=== PATIENT | female | born 1955 | race Caucasian/White ===

== ENCOUNTER 2018-03-30 00:33 | Outpatient (CLI) | payer BC, SELFPAY ==
--- NOTE | 2018-03-30 11:50 | DI.MAMMO_ITS ---
SYMPTOM/DIAGNOSIS: SCREENING, Z12.31, PREVENTATIVE CARE, Z00.00 MAMMOGRAM: Mammograms were interpreted according to the usual protocol including computer analysis with CAD system, tomosynthesis and C view imaging. Comparison with prior examinations. Breast density B. No masses or microcalcifications are seen. There is nothing to suggest malignancy. IMPRESSION: Negative mammogram. Routine screening is recommended. Category I. MQSA ASSESSMENT OF FINDINGS: Negative. Category 1. Patient will receive a letter notifying them of these results. BI-RADS category B. There are scattered areas of fibroglandular density.
== END 2018-03-30 00:53 ==
PROVIDERS: PCP Nurse Practitioner Family; Visit Provider Registered Nurse
DX: Z00.00 Encounter for general adult medical examination without abnormal findings (principal); Z12.31 Encounter for screening mammogram for malignant neoplasm of breast
CPT/HCPCS: 77063; 77067

== ENCOUNTER 2018-05-19 08:18 | Day surgery (SDC) | payer BC, SELFPAY ==
[2018-05-19 08:33] VITALS: BP 129/64; PULSE 72; RESP 20; TEMP 36.6; O2SAT 90
== END 2018-05-19 08:50 | disposition home or self-care (01) ==
LOC: SUR 08:19
PROVIDERS: PCP Registered Nurse; Visit Provider Surgery
DX: Z12.11 Encounter for screening for malignant neoplasm of colon (principal); Z53.09 Procedure and treatment not carried out because of other contraindication; J06.9 Acute upper respiratory infection, unspecified; Y66 Nonadministration of surgical and medical care
CPT/HCPCS: 45378

== ENCOUNTER 2018-09-12 08:16 | Day surgery (SDC) | payer OTHER, SELFPAY ==
--- NOTE | 2018-09-12 06:35 | W.COLOREPORT ---
Date of service: 09/12/18 Time of Service: 09:18 Colonoscopy Report Date of procedure: 09/12/18 Pre-op diagnosis general: Colon Cancer Screening Post-op diagnosis procedure note: other (multiple colorectal polyp / mild diverticulosis) Procedure: Colonoscopy with polypectomy by hot snare and cold forceps Surgeon: Anusha Turcios Anesthesia proc note operative: other (General/ Yoselyn Snell, PULL UP HAND/ ASA 3) Estimated blood loss (mL): 5 Pathology: other (descending Polyp, sigmoid polyps x8, rectal polyp) Complications: None Disposition: no change Indications: Mrs. Brandt is a pleasant 62 year old female who was seen in the office for a screening colonoscopy. Risks, benefits and complications have been reviewed. Complications include but are not limited to bleeding, pain, perforation, missed small lesion/polyp, sore throat, aspiration and adverse reaction to the medications. Questions were entertained and answered to their satisfaction and they wished to proceed. No guarantees were given or implied. Prep: Miralax/Dulcolax Procedure Start Time: :18 Procedure End Time: 10:06 Retraction Time: 23 Findings: Multiple sessile polyps noted and removed with hot snare or cold forceps. Procedure Description: After informed consent was obtained the patient was taken to the procedure room and placed in a left decubitous position. Monitors were applied and a time out was done. The patients name, date of , procedure, allergies to medications and metal in their body was reviewed. The patient was then sedated. Once sedated and comfortable a rectal exam was done. External exam was normal. Internal exam revealed a normal sphincter tone and no palpable masses. The scope was then introduced and retro-flexed. No internal hemorrhoids were identified. The scope was then advanced to the cecum with difficulty due to tortuousity. The TI and appendiceal orifice were identified. The prep was adequate. The scope was then slowly retracted over 23 minutes back into the rectum. Polyps were removed in the descending colon with cold forceps, sigmoid colon x 8 removed with hot snare and cold forceps, and one rectal polyp removed with cold forceps. The scope was removed and the patient was woken up and taken back to Same day surgery in stable condition. The patient tolerated the procedure well and there were no immediate complications. Follow up: The patient should follow up in 3-5 years unless they develop changes in bowel habits or other new gastrointestinal complaints.
--- NOTE | 2018-09-12 06:38 | COLE_ITS ---
Date of service: 09/12/18 Time of Service: 09:18 Colonoscopy Report Date of procedure: 09/12/18 Pre-op diagnosis general: Colon Cancer Screening Post-op diagnosis procedure note: other (multiple colorectal polyp / mild diverticulosis) Procedure: Colonoscopy with polypectomy by hot snare and cold forceps Surgeon: Anusha Turcios Anesthesia proc note operative: other (General/ Yoselyn Snell, CUSTOMER LOGISTICS MANAGER/ ASA 3) Estimated blood loss (mL): 5 Pathology: other (descending Polyp, sigmoid polyps x8, rectal polyp) Complications: None Disposition: no change Indications: Mrs. Brandt is a pleasant 62 year old female who was seen in the office for a screening colonoscopy. Risks, benefits and complications have been reviewed. Complications include but are not limited to bleeding, pain, perforation, missed small lesion/polyp, sore throat, aspiration and adverse reaction to the medications. Questions were entertained and answered to their satisfaction and they wished to proceed. No guarantees were given or implied. Prep: Miralax/Dulcolax Procedure Start Time: :18 Procedure End Time: 10:06 Retraction Time: 23 Findings: Multiple sessile polyps noted and removed with hot snare or cold forceps. Procedure Description: After informed consent was obtained the patient was taken to the procedure room and placed in a left decubitous position. Monitors were applied and a time out was done. The patients name, date of , procedure, allergies to medications and metal in their body was reviewed. The patient was then sedated. Once sedated and comfortable a rectal exam was done. External exam was normal. Internal exam revealed a normal sphincter tone and no palpable masses. The scope was then introduced and retro-flexed. No internal hemorrhoids were identified. The scope was then advanced to the cecum with difficulty due to to rtuousity. The TI and appendiceal orifice were identified. The prep was adequate. The scope was then slowly retracted over 23 minutes back into the rectum. Polyps were removed in the descending colon with cold forceps, sigmoid colon x 8 removed with hot snare and cold forceps, and one rectal polyp removed with cold forceps. The scope was removed and the patient was woken up and taken back to Same day surgery in stable condition. The patient tolerated the procedure well and there were no immediate complications. Follow up: The patient should follow up in 3-5 years unless they develop changes in bowel habits or other new gastrointestinal complaints.
--- NOTE | 2018-09-12 06:39 | W.PM.DSUDISC ---
Discharge Plan Disposition Patient Disposition: HOME Condition: Good Discharge Details Reason For Visit: Colon Cancer Screening Attending Provider: Anusha Turcios Primary Care Provider: INEZ SHIPMAN Home Meds and New Rx's Prescriptions: Continued Restasis 0.05 % dropperette 1 drp OP Q12H RF: 0 levothyroxine 100 mcg capsule 100 mcg PO DAILY RF: 0 Spiriva with HandiHaler 18 mcg capsule, w/inhalation device 1 cap IH DAILY RF: 0 albuterol sulfate [ProAir HFA] 90 mcg/actuation Hfa Aerosol Inhaler 2 puff INHALATION QID PRNRF: 0 Discontinued bisacodyl [Dulcolax (bisacodyl)] 5 mg tablet,delayed release (DR/EC) 5 mg PO ONCE Qty: 4 RF: 0 polyethylene glycol 3350 17 gram/dose powder 255 g PO ONCE Qty: 255 RF: 0 Discharge Instructions Instructions: Colonoscopy (DC), Diverticulosis (DC), Colorectal Polyps (DC) Additional Instructions: Findings: multiple polyps mild diverticulosis Follow up: 3-5 years Please call if you develop: fevers >101.5 Nausea or Vomiting Abdominal pain that is not transient DAY SURGERY UNIT POST COLONOSCOPY INSTRUCTIONS 1. Because there will be medication in your system for the next 24 hours, you may feel a little sleepy. Your coordination will be affected. Therefore: a. Do not drive or operate dangerous equipment for 24 hours. b. Do not drink alcohol beverages for 24 hours (not even beer). c. Plan to go home and rest for the day. 2. Generally there are no restrictions on your activity after a day or so has gone by, but you may feel a bit fatigued for a few days. 3 After you arrive home you may have a light meal and return to a normal diet as you can tolerate it without feeling sick to your stomach. 4. After surgery, you may feel pain or discomfort. This should be only transient, but if it persists please contact your doctor. 5. If there are any questions regarding the findings of your procedure, please feel free to contact your doctor. 6. If you are unable to contact your doctor with a problem, contact the hospital at [phone]. 7. Continue all your regular medications unless directed otherwise. I understand the above instructions and have no questions. Signature of Patient or Responsible Adult Escort Date/Time Name of Responsible Adult Escort Signature of Nurse Date/Time Activity:: Activity as Tolerated Diet:: high fiber diet Discharge Orders Discharge Orders: Discharge Order (Routine); Ordered 09/12/18 Ordered By: Anusha Turcios DS: Diagnosis Discharge Diagnosis (1) S/P colonoscopy: Status: Acute (2) Colorectal polyps: Status: Acute
[2018-09-12 08:42] VITALS: BP 129/72; PULSE 83; RESP 16; TEMP 36; O2SAT 95
[2018-09-12] MEDS: Lactated Ringers 1,000 ML 80 ML IV (09:06)
--- NOTE | 2018-09-12 09:20 | BOWEL_PTH ---
PATIENT: Yodit Brandt LOC: [facility] U#:[id number] AGE/SX: 62/F ROOM: RE09/12/[address]: Anusha Turcios MD : [id number] BED: DIS: 09/12/2018 SPEC #: [id number] RECD: 09/12/18 12:32 STATUS: LINDA RE #: [id number] ALAN: 09/12/18 09:[address]: Anusha Turcios DEPT: Surgical Specimen RECD BY: Britni Little ENTERED: 09/12/18 12:34 SP TYPE: Bowel OTHR DR: Patty Johnson Tissues: 1 - BIOPSY BOWEL 2 - BIOPSY BOWEL 3 - BIOPSY BOWEL Procedures: GROSS AND MICRO LEVEL 4 Comments: [id number]
[2018-09-12 10:46] VITALS: BP 142/86; PULSE 77; RESP 18; TEMP 36; O2SAT 93
== END 2018-09-12 11:13 | disposition home or self-care (01) ==
LOC: SUR 08:17
PROVIDERS: PCP Registered Nurse; Visit Provider Surgery
PROC: 0DJD8ZZ Inspection of Lower Intestinal Tract, Via Natural or Artificial Opening Endoscopic (ICD-10-PCS; CPT 45378; principal; 2018-09-12 09:00)
DX: Z12.11 Encounter for screening for malignant neoplasm of colon (principal); K63.5 Polyp of colon; J44.9 Chronic obstructive pulmonary disease, unspecified; F17.210 Nicotine dependence, cigarettes, uncomplicated
CPT/HCPCS: 45385; 45380; 88305

== ENCOUNTER 2018-11-30 11:26 | Outpatient (REF) | payer OTHER, SELFPAY | END 2018-11-30 11:46 | LOC: NCHCN 11:26 | PROVIDERS: PCP Registered Nurse; Visit Provider Registered Nurse | DX: E03.9 Hypothyroidism, unspecified (principal) | CPT/HCPCS: 84443 ==

== ENCOUNTER 2019-12-19 11:53 | Outpatient (CLI) | payer OTHER, SELFPAY ==
--- NOTE | 2019-12-19 | DI.MAMMO_ITS ---
EXAM: MAMMO SCREENING CLINICAL HISTORY: SCREENING,Z12.31 TECHNIQUE: Mammograms were interpreted according to the usual protocol including computer analysis w Brigade CAD system, tomosynthesis and C-view imaging. COMPARISON: FINDINGS: The breasts are of moderate density with fairly symmetrical distribution of fibroglandular tissue. N o dominant mass or clumped microcalcification is identified in either breast. Current examination is compared with previous examination of March 2018 and there has been no gross interval change uriah earance comparison the previous study. IMPRESSION: No specific evidence of malignancy at this time. Routine screening examinations are suggested at yea rly intervals in this age group according to the ACS ACR guidelines : BI-RADS Cat 1 - Negative Breast Density - Category B - Scattered areas of fibroglandular density
== END 2019-12-19 12:13 ==
PROVIDERS: PCP Registered Nurse; Visit Provider Registered Nurse
DX: Z12.31 Encounter for screening mammogram for malignant neoplasm of breast (principal)
CPT/HCPCS: 77063; 77067

== ENCOUNTER 2020-02-11 14:38 | Outpatient (REF) | payer OTHER, SELFPAY ==
[2020-02-11 22:37] LABS: TSH 0.61 uIU/mL (0.36-3.74)
== END 2020-02-11 14:58 ==
LOC: NCHCN 14:38
PROVIDERS: PCP Registered Nurse; Visit Provider Registered Nurse
DX: E03.9 Hypothyroidism, unspecified (principal)
CPT/HCPCS: 84443

== ENCOUNTER 2020-09-03 10:51 | Outpatient (REF) | payer OTHER, SELFPAY ==
[2020-09-03 14:30] LABS: Hemoglobin A1C 5.9 % (<5.7)
[2020-09-03 14:47] LABS: Calculated LDL 117 mg/dL (<100); Cholesterol 208 mg/dL (<200); HDL Cholesterol 76 mg/dL (40-60); Triglyceride 75 mg/dL (<150)
== END 2020-09-03 10:52 | disposition home or self-care (01) ==
LOC: NCHCN 10:51
PROVIDERS: PCP Registered Nurse; Visit Provider Registered Nurse
DX: Z00.00 Encounter for general adult medical examination without abnormal findings (principal); E66.9 Obesity, unspecified; Z83.3 Family history of diabetes mellitus
CPT/HCPCS: 80061; 83036

== ENCOUNTER 2021-01-29 13:13 | Outpatient (REF) | payer OTHER, SELFPAY ==
[2021-01-29 14:25] LABS: Anion Gap 10.7 mmol/L (3-11); BUN 14 mg/dL (7-18); CO2 25.3 mmol/L (21.0-32.0); CREATININE 0.7 mg/dL (0.55-1.02); Calcium 8.9 mg/dL (8.5-10.1); Chloride 108 mmol/L (98-107); Glucose 102 mg/dL (74-106); Potassium 4.1 mmol/L (3.5-5.1); Sodium 144 mmol/L (136-145); TSH 0.27 uIU/mL (0.36-3.74)
== END 2021-01-29 13:14 | disposition home or self-care (01) ==
LOC: NCHCN 13:13
PROVIDERS: PCP Registered Nurse; Visit Provider Registered Nurse
DX: E03.9 Hypothyroidism, unspecified (principal); R73.03 Prediabetes
CPT/HCPCS: 80048; 84443

== ENCOUNTER 2021-06-03 09:11 | Outpatient (REF) | payer OTHER, SELFPAY ==
[2021-06-03 14:30] LABS: ALT 45 U/L (14-59); AST 29 U/L (15-37); Albumin 3.9 g/dL (3.4-5.0); Alkaline Phosphatase 85 U/L (46-116); BUN 17 mg/dL (7-18); Bilirubin, Total 0.6 mg/dL (0.2-1.0); CREATININE 0.7 mg/dL (0.55-1.02); Chloride 105 mmol/L (98-107); Glucose 115 mg/dL (74-106); Potassium 4.2 mmol/L (3.5-5.1); Sodium 144 mmol/L (136-145); TSH 4.15 uIU/mL (0.36-3.74); Total Protein 7.2 g/dL (6.4-8.2)
[2021-06-04 13:23] LABS: FREE T4 1.15 ng/dL (0.76-1.46)
== END 2021-06-03 09:12 | disposition home or self-care (01) ==
LOC: NCHCN 09:11
PROVIDERS: PCP Registered Nurse; Visit Provider Registered Nurse
DX: E03.9 Hypothyroidism, unspecified (principal); F10.99 Alcohol use, unspecified with unspecified alcohol-induced disorder
CPT/HCPCS: 80053; 84439; 84443

== ENCOUNTER 2021-09-04 01:04 | Outpatient (CLI) | payer OTHER, SELFPAY ==
[2021-09-04 15:53] LABS: Source Nasal/Nares
[2021-09-04 21:03] LABS: COVID-19 PCR Negative (Negative)
== END 2021-09-04 01:05 | disposition home or self-care (01) ==
LOC: LBO 01:05
PROVIDERS: PCP Registered Nurse; Visit Provider Ophthalmology
DX: Z20.822 Contact with and (suspected) exposure to COVID-19 (principal)
CPT/HCPCS: 87635; U0003

== ENCOUNTER 2021-09-07 10:17 | Day surgery (SDC) | payer OTHER, SELFPAY ==
[2021-09-07] MEDS: Tropicam./Phenyleph. (1/2.5%) 5 ML BTL OS ×3 (11:03→11:19)
[2021-09-07 11:04] VITALS: BP 143/84; PULSE 79; RESP 17; TEMP 36.4; O2SAT 97
--- NOTE | 2021-09-07 11:17 | W.ANESPRE ---
General Info Date of Service Date Performed: 09/07/21 Height: 5 ft 6 in Weight: 86.1 kg Body Mass Index (BMI): 30.6 Surgical Procedure: Operation Date: 09/07/21 13:40 Proposed Procedure Side Surgeon p Cataract Extraction with IOL Implant Left Yoshi Scott MD Meds Allergies and Home Medications Allergies Allergy/AdvReac Type Severity Reaction Status Date / Time No Known Allergies Allergy Verified 09/07/21 10:56 Home Medication Medication Instructions Recorded cyclosporine 0.05 % eye drops in a 1 drp OP Q12H 04/26/18 dropperette (Restasis) albuterol sulfate 90 mcg/actuation 2 puff INHALATION QID PRN 05/17/18 aerosol inhaler (ProAir HFA) tiotropium bromide 18 mcg capsule 1 cap IH DAILY 08/03/18 with inhalation device (Spiriva with HandiHaler) atorvastatin 20 mg tablet 20 mg PO DAILY 09/04/21 fluticasone propionate 230 2 puff INHALATION BID 09/04/21 mcg-salmeterol 21 mcg/actuation HFA inhaler (Advair HFA) levothyroxine 88 mcg tablet 88 mcg PO DAILY 09/07/21 Current Visit Medications: Current Medications Generic Name Dose Route Start Last Admin Trade Name Freq PRN Reason Stop Dose Admin Acetaminophen 1,000 mg 09/07/21 06:00 Acetaminophen 500 Mg Tab PO Q4H PRN PRN Miscellaneous Medication 0 ml 09/07/21 06:00 Prednisolone 1%, Moxifloxacin 0.5%, Nepafenac 0.1% 5ml Btl OS DIRECTED GEORGIE Miscellaneous Medication 0 ml 09/07/21 06:00 09/07/21 11:13 Tropicam./Phenyleph. (1/2.5%) 5 Ml Btl OS 1 drp DIRECTED GEORGIE Administration Tetracaine HCl 0 ml 09/07/21 06:00 Tetracaine 0.5% 4 Ml Btl OS DIRECTED GEORGIE PFSH Active Problems Active Problems: Problem Status Onset Code Colorectal polyps ~09/12/18 K63.5 S/P colonoscopy ~09/12/18 Z98.890 Pre-operative examination Z01.818 Soft tissue mass ~05/2018 M79.9 COPD (chronic obstructive pulmonary disease) J44.9 H/O colonoscopy Z98.890 Smoker F17.200 Irregular heart beat I49.9 Hypothyroidism E03.9 Medical History Medical History Daytime somnolence Snoring Surgical History Surgical History History of hysterectomy Tobacco Smoking/Tobacco Use Status: Former Tobacco Use Alcohol Alcohol Intake: current Alcohol intake frequency: 3 or more drinks per day Alcohol type: beer Substance Use Substance use: Occasionally Substance use type: marijuana Vital Signs and Lab Results Vital Signs Most Recent Vital Signs in EMR: Most Recent Vital Signs Temp Pulse Resp BP Pulse Ox 36.4 C L 79 17 143/84 H 97 09/07/21 11:04 09/07/21 11:04 09/07/21 11:04 09/07/21 11:04 09/07/21 11:04 Lab Results Blood Type / Crossmatch: No Data to Display Complete Blood Count: No Data to Display Complete Metabolic Panel: No Data to Display Liver Function Panel: No Data to Display Coagulation Panel: No Data to Display Cardiac Panel: No Data to Display Arterial Blood Gas: No Data to Display Venous Blood Gas: No Data to Display Pancreas Panel: No Data to Display Thyroid Panel: No Data to Display Infectious Disease: Coronavirus (COVID-19)(PCR) Negative (Negative) 09/04/21 09:20 09/04/21 Coronavirus 2019 Source Nasal/Nares 09/04/21 09:20 09/04/21 Blood Cultures: No Data to Display Toxicology Panel: No Data to Display Anesthesia Assessment and Plan Anesthesia History Personal History: No History of Anesthesia Complications Family History: No Family History of Anesthesia Complications Exercise Tolerance Exercise Tolerance: Metabolic Equivalents>4 Pertinent Negatives Pertinent Negatives: No Symptoms of GERD Cardiac & Pulmonary Exam Cardiac Exam: Normal S1/S2 Heart Sounds Pulmonary Exam: Clear Bilateral Breath Sounds Implantable Cardiac Device Does patient have a Pacemaker or an ICD?: No Airway Exam Known Difficult Airway: No Mallampati Class: 3 Mouth Opening: Normal (> 3cm) Thyromental Distance: Greater than 3 cm Neck Range of Motion: Full ROM Neck Circumference: Normal Teeth Condition: Normal Dentition ASA Classification ASA Score: ASA 2 Emergency Case?: No NPO Status NPO Status: NPO Clears >2 hours, Solids >8 hours Anesthesia Plan Resuscitation Status: Full Code Anesthesia Technique: MAC Anesthesia Airway Planned: Natural Airway Monitors Used: Standard Monitors
[2021-09-07 11:44] VITALS: BMI 30.6
[2021-09-07] MEDS: Tetracaine 0.5% 4 ML BTL OS (12:03)
[2021-09-07] MEDS: Duovisc Viscoelastic System EACH 1 EACH (12:04)
[2021-09-07] MEDS: Balanced Salt Soln.-PLUS 500 ML BAG (12:04)
[2021-09-07] MEDS: Lidocaine 2% Jelly 6 ML SYR (12:05)
[2021-09-07] MEDS: Povidone-Iodine Ophth 30 ML BTL (12:07)
[2021-09-07 12:23] VITALS: BP 151/82; PULSE 73; RESP 16; TEMP 36.7; O2SAT 96
--- NOTE | 2021-09-07 12:24 | W.PM.DSUDISC ---
Discharge Plan Disposition Patient Disposition: HOME Condition: Good Discharge Details Attending Provider: Yoshi Scott Primary Care Provider: Patty Johnson Home Meds and New Rx's Prescriptions: No Action Restasis 0.05 % dropperette 1 drp OP Q12H 0RF Spiriva with HandiHaler 18 mcg capsule, w/inhalation device 1 cap IH DAILY 0RF albuterol sulfate [ProAir HFA] 90 mcg/actuation Hfa Aerosol Inhaler 2 puff INHALATION QID PRN0RF atorvastatin 20 mg tablet 20 mg PO DAILY 0RF Label Comments: TAKE 1 TABLET BY MOUTH EVERY DAY Advair HFA 230-21 mcg/actuation HFA aerosol inhaler 2 puff INHALATION BID 0RF levothyroxine 88 mcg tablet 88 mcg PO DAILY 0RF Discharge Instructions Stand Alone Forms: Post-op Topical Cataract, Khushi Ganey (DSU) Discharge Orders Discharge Orders: Discharge Order (Routine); Ordered 09/07/21 Ordered By: Yoshi Scott DS: Diagnosis Discharge Diagnosis (1) Nuclear sclerotic cataract of left eye: Status: Resolved
--- NOTE | 2021-09-07 12:24 | W.PM.OP ---
Date of service: 09/07/21 Time of Service: 12:25 Operative Note Operative Note DATE OF PROCEDURE: 09/07/21 PRE-OP DIAGNOSIS: Nuclear cataract, left eye POST-OP DIAGNOSIS: same PROCEDURE: Cataract extraction using phacoemulsification with intraocular lens implant, left eye SURGEON: Yoshi Scott ANESTHESIA TYPE: Local By Surgeon and MAC Refer to Anesthesia Record PATHOLOGY: none sent COMPLICATIONS: None Patient was transported to: same day Patient's condition: stable Implants: Bernard Clareon [id number] Indications: Progressive decreased vision due to cataract, left eye Procedure Description: CATARACT SURGERY OPERATIVE REPORT PREOPERATIVE DIAGNOSIS: Nuclear cataract, left eye POSTOPERATIVE DIAGNOSIS: Same OPERATION: Cataract extraction using phacoemulsification with posterior chamber intraocular lens implant, left eye. IOL: IOL Heritage Consultant/Model: Bernard Clareon [id number] IOL Power: + 15.5 diopters IOL Serial Number: [id number] Optic Diameter: 6.0mm Haptic/Overall Diameter: 13.0mm PHACO INFO: Bernard Complixurion Vision System with OZil and Active Fluidics Cumulative Dispersed Energy (CDE): 8.45 seconds SURGEON: Yoshi Scott MD, MILDRED ANESTHESIA: Monitored Anesthesia Care (MAC), with local sub-tenon's anesthetic infiltration COMPLICATIONS: None SPECIMENS: None INDICATIONS FOR PROCEDURE: The patient is a 65-year-old lady with history of diminished visual acuity in her left eye secondary to the development of nuclear cataract. The option of cataract surgery was offered to the patient and she felt she was symptomatic enough that she wished to proceed. PROCEDURE: The correct surgical eye was identified and marked as the left eye and the pupil was dilated in the preoperative area using mydriatics and cycloplegics. The dilated pupil size was 7.0 mm. She elected to proceed without oral sedation.. The patient was brought to the operating room where cardiopulmonary monitoring was instituted and surgical time-out was performed, confirming the correct operative eye and IOL power. Topical anesthesia was administered and ophthalmic povidone-iodine 5% was instilled into the conjunctival fornices. Lidocaine gel was applied to the cornea and the angela-ocular area was prepped with Betadine 10% solution and draped in the usual sterile fashion for intraocular surgery, including an aperture drape. A Tegaderm transparent film dressing was cut in half and used to cover the lashes and lid margins. Care was taken to sequester the lashes and lid margins under the Tegaderm dressing. A lid speculum was placed between the lids of the operative eye and the operating microscope was maneuvered into position. Tato scissors were then used to make a conjunctival buttonhole approximately 6mm posterior to the limbus in the inferonasal quadrant. Blunt dissection was carried out to expose bare sclera, and a blunt-tipped sub-tenon?s anesthesia cannula was introduced and passed posteriorly along the globe where non-preserved plain lidocaine was injected into posterior sub-Tenon?s space. A sideport knife was used to make a paracentesis port superior/superiortemporally. Intraocular phenylephrine/lidocaine was injected into the anterior chamber. The anterior chamber was then filled with viscoelastic. A 2.4mm keratome knife was used to create a half-thickness groove at the limbus and then to construct a three-plane near-clear corneal tunnel extending 2.0mm into clear cornea in the temporal position. . A flap was raised on the anterior capsule and capsulorhexis forceps were used to complete a continuous curvilinear capsulorhexis of 5.0 mm. Balanced salt solution was then used to perform cortical cleaving hydrodissection and nuclear hydrodelineation until the lens could be freely rotated within the capsular bag. The lens nucleus was then disassembled and removed within the capsular bag and iris plane using phacoemulsification. Residual cortical material was removed using the 45-degree angled silicone I/A tip with 0.3mm port. The posterior capsule was carefully polished to remove as much residual lens epithelial cells as safely possible. The capsular bag was then inflated and the anterior chamber deepened with viscoelastic. The lens implant described above was inserted into the capsular bag using the Bernard Autonome Injector. A Kuglen hook was used to dial the IOL into position. Residual viscoelastic was then removed first from posterior to the IOL, then from the anterior chamber using the I/A handpiece. The lens implant was noted to center nicely within the capsular bag. The incisions were stromally hydrated, and the anterior chamber was reformed using BSS. Then 0.5cc of moxifloxacin 1.0mg/ml were injected into the capsular bag and anterior chamber. The incisions were checked with a Weck spear and found to be secure. Several drops of ophthalmic povidone-iodine 5% were then applied to the eye followed by two drops of Imprimis combination prednisolone/moxifloxacin/nepafenac solution. The drapes were removed and a clear plastic protective eye shield was placed over the eye. The patient was then returned to Same Day Surgery in stable condition.
--- NOTE | 2021-09-07 12:39 | W.ANESPOSTOP ---
Postoperative Evaluation Date, Time and Location Date Performed: 09/07/21 Time Performed: 12:35 Patient Location: Day Surgery Unit Vital Signs Most Recent Imported Vital Signs: Most Recent Vital Signs Temp Pulse Resp BP Pulse Ox 36.7 C 73 16 151/82 H 96 09/07/21 12:23 09/07/21 12:23 09/07/21 12:23 09/07/21 12:23 09/07/21 12:23 Pain Score Most Recent Pain Score: Most Recent Pain Score Pain Level 0 09/07/21 12:23 Assessment Mental Status: Awake (Alert & Oriented to Patient Baseline) Airway and Respiratory Function: Patent airway with normal (patient baseline) respiratory exam Cardiovascular Function: Hemodynamically Stable Hydration Status: Adequately Hydrated Nausea & Vomiting: No Nausea or Vomiting Pain: Pt. Denies Any Pain Peripheral Nerve Block: Patient did not receive a nerve block
== END 2021-09-07 12:50 | disposition home or self-care (01) ==
PROVIDERS: PCP Registered Nurse; Visit Provider Ophthalmology
PROC: (CPT 66984; principal; 2021-09-07 13:30)
DX: H25.12 Age-related nuclear cataract, left eye (principal); J44.9 Chronic obstructive pulmonary disease, unspecified; F17.210 Nicotine dependence, cigarettes, uncomplicated
CPT/HCPCS: 66984; V2632

== ENCOUNTER 2021-09-18 01:53 | Outpatient (CLI) | payer OTHER, SELFPAY ==
[2021-09-18 12:19] LABS: Source Nasal/Nares
[2021-09-18 15:39] LABS: COVID-19 PCR Negative (Negative)
== END 2021-09-18 01:54 | disposition home or self-care (01) ==
LOC: LBO 01:53
PROVIDERS: PCP Registered Nurse; Visit Provider Ophthalmology
DX: Z20.822 Contact with and (suspected) exposure to COVID-19 (principal)
CPT/HCPCS: 87635

== ENCOUNTER 2021-09-21 07:21 | Day surgery (SDC) | payer OTHER, SELFPAY ==
--- NOTE | 2021-09-21 07:45 | W.ANESPRE ---
General Info Date of Service Date Performed: 09/21/21 Height: 5 ft 6 in Weight: 86.1 kg Body Mass Index (BMI): 30.6 Surgical Procedure: Operation Date: 09/21/21 09:40 Proposed Procedure Side Surgeon p Cataract Extraction with IOL Implant Right oYshi Scott MD Meds Allergies and Home Medications Allergies Allergy/AdvReac Type Severity Reaction Status Date / Time No Known Allergies Allergy Verified 09/21/21 07:44 Home Medication Medication Instructions Recorded cyclosporine 0.05 % eye drops in a 1 drp OP Q12H 04/26/18 dropperette (Restasis) albuterol sulfate 90 mcg/actuation 2 puff INHALATION QID PRN 05/17/18 aerosol inhaler (ProAir HFA) tiotropium bromide 18 mcg capsule 1 cap IH DAILY 08/03/18 with inhalation device (Spiriva with HandiHaler) atorvastatin 20 mg tablet 20 mg PO DAILY 09/04/21 fluticasone propionate 230 2 puff INHALATION BID 09/04/21 mcg-salmeterol 21 mcg/actuation HFA inhaler (Advair HFA) levothyroxine 88 mcg tablet 88 mcg PO DAILY 09/07/21 Current Visit Medications: Current Medications Generic Name Dose Route Start Last Admin Trade Name Freq PRN Reason Stop Dose Admin Acetaminophen 1,000 mg 09/21/21 06:00 Acetaminophen 500 Mg Tab PO Q4H PRN PRN Miscellaneous Medication 0 ml 09/21/21 06:00 Prednisolone 1%, Moxifloxacin 0.5%, Nepafenac 0.1% 5ml Btl OD DIRECTED [facility] Miscellaneous Medication 0 ml 09/21/21 06:00 Tropicam./Phenyleph. (1/2.5%) 5 Ml Btl OD DIRECTED [facility] Tetracaine HCl 0 ml 09/21/21 06:00 Tetracaine 0.5% 4 Ml Btl OD DIRECTED [facility] PFSH Active Problems Active Problems: Problem Status Onset Code Hypothyroidism E03.9 Irregular heart beat I49.9 Smoker F17.200 H/O colonoscopy Z98.890 COPD (chronic obstructive pulmonary disease) J44.9 Soft tissue mass ~05/2018 M79.9 Pre-operative examination Z01.818 S/P colonoscopy ~09/12/18 Z98.890 Colorectal polyps ~09/12/18 K63.5 Nuclear sclerotic cataract of left eye H25.12 Medical History Medical History Daytime somnolence Snoring Surgical History Surgical History (Updated 09/21/21 @ 07:44 by Liseth Shaw) History of hysterectomy Hx of cataract surgery Tobacco Smoking/Tobacco Use Status: Former Tobacco Use Alcohol Alcohol Intake: current Alcohol intake frequency: 3 or more drinks per day Alcohol type: beer Substance Use Substance use: Occasionally Substance use type: marijuana Vital Signs and Lab Results Lab Results Blood Type / Crossmatch: No Data to Display Complete Blood Count: No Data to Display Complete Metabolic Panel: No Data to Display Liver Function Panel: No Data to Display Coagulation Panel: No Data to Display Cardiac Panel: No Data to Display Arterial Blood Gas: No Data to Display Venous Blood Gas: No Data to Display Pancreas Panel: No Data to Display Thyroid Panel: No Data to Display Infectious Disease: Coronavirus (COVID-19)(PCR) Negative (Negative) 09/18/21 08:37 09/18/21 Coronavirus 2019 Source Nasal/Nares 09/18/21 08:37 09/18/21 Blood Cultures: No Data to Display Toxicology Panel: No Data to Display Anesthesia Assessment and Plan Anesthesia History Personal History: No History of Anesthesia Complications Family History: No Family History of Anesthesia Complications Exercise Tolerance Exercise Tolerance: Metabolic Equivalents>4 Pertinent Negatives Pertinent Negatives: No Symptoms of GERD, No Major Cardiovascular Symptoms or Complaints, No Major Pulmonary Symptoms or Complaints and No History of CVA/TIA Cardiac & Pulmonary Exam Cardiac Exam: Normal S1/S2 Heart Sounds Pulmonary Exam: Clear Bilateral Breath Sounds Implantable Cardiac Device Does patient have a Pacemaker or an ICD?: No Airway Exam Known Difficult Airway: No Mallampati Class: 3 Mouth Opening: Normal (> 3cm) Thyromental Distance: Greater than 3 cm Neck Range of Motion: Full ROM Neck Circumference: Normal Teeth Condition: Normal Dentition ASA Classification ASA Score: ASA 2 Emergency Case?: No NPO Status NPO Status: NPO Clears >2 hours, Solids >8 hours Anesthesia Plan Resuscitation Status: Full Code Anesthesia Technique: MAC Anesthesia Airway Planned: Natural Airway Monitors Used: Standard Monitors
[2021-09-21] MEDS: Tropicam./Phenyleph. (1/2.5%) 5 ML BTL OD ×3 (07:52→08:02)
[2021-09-21 07:53] VITALS: BP 130/83; PULSE 77; RESP 16; TEMP 36.6; O2SAT 97
[2021-09-21 08:43] VITALS: BMI 30.6
[2021-09-21] MEDS: Tetracaine 0.5% 4 ML BTL OD (08:53)
[2021-09-21] MEDS: Povidone-Iodine Ophth 30 ML BTL (08:53)
[2021-09-21] MEDS: Lidocaine 2% Jelly 6 ML SYR (08:53)
[2021-09-21] MEDS: Duovisc Viscoelastic System EACH 1 EACH (09:00)
[2021-09-21] MEDS: Balanced Salt Soln.-PLUS 500 ML BAG (09:10)
[2021-09-21 09:20] VITALS: BP 130/79; PULSE 62; RESP 16; TEMP 36.6; O2SAT 96
--- NOTE | 2021-09-21 09:20 | W.PM.DSUDISC ---
Discharge Plan Disposition Patient Disposition: HOME Condition: Good Discharge Details Attending Provider: Yoshi Scott Primary Care Provider: Patty Johnson Home Meds and New Rx's Prescriptions: No Action Restasis 0.05 % dropperette 1 drp OP Q12H 0RF Spiriva with HandiHaler 18 mcg capsule, w/inhalation device 1 cap IH DAILY 0RF albuterol sulfate [ProAir HFA] 90 mcg/actuation Hfa Aerosol Inhaler 2 puff INHALATION QID PRN0RF atorvastatin 20 mg tablet 20 mg PO DAILY 0RF Label Comments: TAKE 1 TABLET BY MOUTH EVERY DAY Advair HFA 230-21 mcg/actuation HFA aerosol inhaler 2 puff INHALATION BID 0RF levothyroxine 88 mcg tablet 88 mcg PO DAILY 0RF Discharge Instructions Stand Alone Forms: Post-op Block Cataract, Post-op Topical Cataract Discharge Orders Discharge Orders: Discharge Order (Routine); Ordered 09/21/21 Ordered By: Yoshi Scott DS: Diagnosis Discharge Diagnosis (1) Nuclear sclerotic cataract of right eye: Status: Resolved
--- NOTE | 2021-09-21 09:20 | W.ANESPOSTOP ---
Postoperative Evaluation Date, Time and Location Date Performed: 09/21/21 Time Performed: 09:21 Patient Location: Day Surgery Unit Vital Signs Most Recent Imported Vital Signs: Most Recent Vital Signs Temp Pulse Resp BP Pulse Ox 36.6 C 77 16 130/83 97 09/21/21 07:53 09/21/21 07:53 09/21/21 07:53 09/21/21 07:53 09/21/21 07:53 Most Recent Manually Entered Vital Signs: Adult Blood Pressure: 130/79 Heart Rate: 66 Respirations: 10 Oxygen Saturation (%): 97 Temperature (C): 36.3 C Pain Score (0-10 Scale): 0 Pain Score Most Recent Pain Score: Most Recent Pain Score Pain Level 0 09/21/21 07:53 Assessment Mental Status: Awake (Alert & Oriented to Patient Baseline) Airway and Respiratory Function: Patent airway with normal (patient baseline) respiratory exam Cardiovascular Function: Hemodynamically Stable Hydration Status: Adequately Hydrated Nausea & Vomiting: No Nausea or Vomiting Pain: Pt. Denies Any Pain Peripheral Nerve Block: Patient did not receive a nerve block
--- NOTE | 2021-09-21 09:21 | ROE_ITS ---
Date of service: 09/21/21 Time of Service: 09:21 Operative Note Operative Note DATE OF PROCEDURE: 09/21/21 PRE-OP DIAGNOSIS: Nuclear cataract, right eye POST-OP DIAGNOSIS: same PROCEDURE: Cataract extraction using phacoemulsification with intraocular lens implant, right eye SURGEON: Yoshi Scott ANESTHESIA TYPE: Local By Surgeon and MAC Refer to Anesthesia Record ESTIMATED BLOOD LOSS: 0 PATHOLOGY: none sent COMPLICATIONS: None Patient was transported to: same day Patient's condition: stable Implants: Helio & Helio/BRAEDEN Tecnis [id number] Indications: Progressive visual loss due to cataract, right eye Procedure Description: CATARACT SURGERY OPERATIVE REPORT PREOPERATIVE DIAGNOSIS: 1. Nuclear cataract, right eye POSTOPERATIVE DIAGNOSIS: Same OPERATION: 1. Cataract extraction using phacoemulsification with posterior chamber intraocular lens implant, right eye. IOL: IOL Child Care Lead Teacher/Model: Helio & Helio / BRAEDEN Tecnis [id number] IOL Power: + 15.5 diopters IOL Serial Number: [id number] Optic Diameter: 6.0mm Haptic/Overall Diameter: 13.0mm PHACO INFO: BernardQuriurion Vision System with OZil and Active Fluidics Cumulative Dispersed Energy (CDE): 8.12 seconds SURGEON: Yoshi Scott MD, MILDRED ANESTHESIA: Monitored Anesthesia Care (MAC), with local sub-tenon's anesthetic infiltration COMPLICATIONS: None SPECIMENS: None INDICATIONS FOR PROCEDURE: The patient is a 65-year-old lady with history of diminished visual acuity in both eyes secondary to the development of bilateral nuclear cataract. She has already undergone cataract surgery in the left eye and is doing well postoperatively. She now presents for surgery in the right eye. PROCEDURE: The correct surgical eye was identified and marked as the right eye and the pupil was dilated in the preoperative area using mydriatics and cycloplegics. The dilated pupil size was 8.0 mm. She elected to proceed without oral sedation.. The patient was brought to the operating room where cardiopulmonary monitoring was instituted and surgical time-out was performed, confirming the correct operative eye and IOL power. Topical anesthesia was administered and ophthalmic povidone-iodine 5% was instilled into the conjunctival fornices. Lidocaine gel was applied to the cornea and the angela-ocular area was prepped with Betadine 10% solution and draped in the usual sterile fashion for intraocular surgery, including an aperture drape. A Tegaderm transparent film dressing was cut in half and used to cover the lashes and lid margins. Care was taken to sequester the lashes and lid margins under the Tegaderm dressing. A lid speculum was placed between the lids of the operative eye and the Bernard LuxOR Revalia operating microscope was maneuvered into position. Tato scissors were then used to make a conjunctival buttonhole approximately 6mm posterior to the limbus in the inferonasal quadrant. Blunt dissection was carried out to expose bare sclera, and a blunt-tipped sub-tenon?s anesthesia cannula was introduced and passed posteriorly along the globe where non- preserved plain lidocaine was injected into posterior sub-Tenon?s space. A sideport knife was used to make a paracentesis port inferotemporally. Intraocular phenylephrine/lidocaine was injected into the anterior chamber. The anterior chamber was filled with viscoelastic. A 2.4mm keratome knife was used to create a half-thickness groove at the limbus and then to construct a three- plane near-clear corneal tunnel extending 2.0mm into clear cornea superiortemporally. A flap was raised on the anterior capsule and capsulorhexis forceps were used to complete a continuous curvilinear capsulorhexis of 5.5 mm. Balanced salt solution was then used to perform cortical cleaving hydrodissection and nuclear hydrodelineation until the lens could be freely rotated within the capsular bag. The lens nucleus was then disassembled and removed within the capsular bag and iris plane using phacoemulsification. Residual cortical material was removed using the I/A handpiece. The posterior capsule was carefully polished to remove as much residual lens epithelial cells as safely possible. The capsular bag was then inflated and the anterior chamber deepened with viscoelastic. The lens implant described above was inserted into the capsular bag using the BRAEDEN Lula Injector. A Kuglen hook was used to dial the IOL into position. Residual viscoelastic was then removed first from posterior to the IOL, then from the anterior chamber using the I/A handpiece. The lens implant was noted to center nicely within the capsular bag. The incisions were stromally hydrated, and the anterior chamber was reformed using BSS. Then 0.5cc of moxifloxacin 1.0mg/ml were injected into the capsular bag and anterior chamber. The incisions were checked with a Weck spear and found to be secure. Several drops of ophthalmic povidone-iodine 5% were then applied to the eye followed by two drops of Imprimis combination prednisolone/moxifloxacin/nepafenac solution. The drapes were removed and a clear plastic protective eye shield was placed over the eye. The patient was then returned to Same Day Surgery in stable condition.
[2021-09-21 09:22] VITALS: BP 130/79; PULSE 66; RESP 10; TEMPC 36.3; O2SAT 97
== END 2021-09-21 09:45 | disposition home or self-care (01) ==
PROVIDERS: PCP Registered Nurse; Visit Provider Ophthalmology
PROC: (CPT 66984; principal; 2021-09-21 09:30)
DX: H25.11 Age-related nuclear cataract, right eye (principal); F17.210 Nicotine dependence, cigarettes, uncomplicated; J44.9 Chronic obstructive pulmonary disease, unspecified; E03.9 Hypothyroidism, unspecified
CPT/HCPCS: 66984; V2632

== ENCOUNTER 2021-12-02 09:17 | Outpatient (REF) | payer MEDICARE, SELFPAY ==
[2021-12-02 14:45] LABS: Hemoglobin A1C 5.8 % (<5.7)
== END 2021-12-02 09:18 | disposition home or self-care (01) ==
LOC: NCHCN 09:17
PROVIDERS: PCP Registered Nurse; Visit Provider Registered Nurse
DX: E03.9 Hypothyroidism, unspecified (principal); R73.09 Other abnormal glucose
CPT/HCPCS: 83036; 84443

== ENCOUNTER → 2022-02-15 01:28 | Outpatient (CLI) | payer MEDICARE, SELFPAY ==
--- NOTE | 2022-02-15 09:29 | DI.MAMMO_ITS ---
Exam(s) MAMMO SCREENING EXAM: MAMMO SCREENING CLINICAL HISTORY: SCREENING, Z12.31 TECHNIQUE: Mammograms were interpreted according to the usual protocol including computer analysis w Cloudant CAD system, tomosynthesis and C-view imaging. COMPARISON: FINDINGS: The breasts are moderate density with fairly symmetrical distribution of fibroglandular tissue. No d ominant mass or clumped microcalcification is identified in either breast. The current examination i s compared with previous examinations including December 2019 and there has been no gross interval change in appearance in comparison with the prior studies. IMPRESSION: No specific evidence of malignancy at this time. Routine screening examinations are suggested at yea rly intervals in this age group according to the ACS ACR guidelines. BI-RADS Category 1 - Negative Breast Density - Category B - Scattered areas of fibroglandular density
== END ==
PROVIDERS: PCP Registered Nurse; Visit Provider Registered Nurse
DX: Z12.31 Encounter for screening mammogram for malignant neoplasm of breast (principal)
CPT/HCPCS: 77063; 77067

== ENCOUNTER 2022-06-03 09:48 | Outpatient (REF) | payer MEDICARE, SELFPAY ==
[2022-06-03 14:51] LABS: ALT 29 U/L (14-59); AST 29 U/L (15-37); Albumin 3.3 g/dL (3.4-5.0); Alkaline Phosphatase 76 U/L (46-116); Anion Gap 6.7 mmol/L (3-11); BUN 6 mg/dL (7-18); Bilirubin, Total 0.4 mg/dL (0.2-1.0); CO2 30.3 mmol/L (21.0-32.0); CREATININE 0.7 mg/dL (0.55-1.02); Calcium 9.4 mg/dL (8.5-10.1); Calculated LDL 50 mg/dL (<100); Chloride 108 mmol/L (98-107); Cholesterol 112 mg/dL (<200); Estimated GFR 94.73 (mL/min/1.73m2); Glucose 108 mg/dL (74-106); HDL Cholesterol 51 mg/dL (40-60); Potassium 4.1 mmol/L (3.5-5.1); Sodium 145 mmol/L (136-145); Total Protein 7.4 g/dL (6.4-8.2); Triglyceride 58 mg/dL (<150)
[2022-06-03 17:43] LABS: Hemoglobin A1C 6.4 % (<5.7)
== END 2022-06-03 09:49 | disposition home or self-care (01) ==
LOC: NCHCN 09:48
PROVIDERS: PCP Registered Nurse; Visit Provider Registered Nurse
DX: I10 Essential (primary) hypertension (principal); E78.5 Hyperlipidemia, unspecified; R73.03 Prediabetes
CPT/HCPCS: 80053; 80061; 83036

== ENCOUNTER 2022-11-30 17:55 | Outpatient (REF) | payer MEDICARE, SELFPAY ==
[2022-11-30 16:00] LABS: TSH 2.86 uIU/mL (0.36-3.74)
== END 2022-11-30 17:56 | disposition home or self-care (01) ==
LOC: NCHCN 17:55
PROVIDERS: PCP Registered Nurse; Visit Provider Registered Nurse
DX: E03.9 Hypothyroidism, unspecified (principal)
CPT/HCPCS: 84443

== ENCOUNTER 2023-08-31 18:56 | Outpatient (REF) | payer MEDICARE, SELFPAY ==
[2023-08-31 21:12] LABS: Hemoglobin A1C 6.1 % (<5.7)
[2023-08-31 21:20] LABS: ALT 46 U/L (14-59); AST 34 U/L (15-37); Albumin 3.8 g/dL (3.4-5.0); Alkaline Phosphatase 101 U/L (46-116); Anion Gap 10.6 mmol/L (3-11); BUN 18 mg/dL (7-18); Bilirubin, Total 0.4 mg/dL (0.2-1.0); CO2 27.4 mmol/L (21.0-32.0); CREATININE 0.7 mg/dL (0.55-1.02); Calcium 9.5 mg/dL (8.5-10.1); Calculated LDL 65 mg/dL (<100); Chloride 110 mmol/L (98-107); Cholesterol 144 mg/dL (<200); Estimated GFR 94.15 (mL/min/1.73m2); Glucose 127 mg/dL (74-106); HDL Cholesterol 66 mg/dL (40-60); Potassium 3.5 mmol/L (3.5-5.1); Sodium 148 mmol/L (136-145); TSH 2.38 uIU/mL (0.36-3.74); Total Protein 7.4 g/dL (6.4-8.2); Triglyceride 66 mg/dL (<150)
== END 2023-08-31 18:57 | disposition home or self-care (01) ==
LOC: NCHCN 18:56
PROVIDERS: PCP Registered Nurse; Referring Provider Nurse Practitioner Family; Visit Provider Nurse Practitioner Family
DX: I10 Essential (primary) hypertension (principal); E03.9 Hypothyroidism, unspecified; R73.03 Prediabetes; E78.89 Other lipoprotein metabolism disorders
CPT/HCPCS: 80053; 80061; 83036; 84443

== ENCOUNTER → 2023-09-13 02:49 | Outpatient (CLI) | payer MEDICARE, SELFPAY ==
--- NOTE | 2023-09-13 | DI.MAMMO_ITS ---
Exam(s) MAMMO SCREENING EXAM: MAMMO SCREENING CLINICAL HISTORY: SCREENING MAMMO FOR BREAST CANCER Z12.31 TECHNIQUE: Mammograms were interpreted according to the usual protocol including computer analysis w LOCK8 CAD system, tomosynthesis and C-view imaging. COMPARISON: 2017 through 2021 FINDINGS: The breasts are composed of scattered fibroglandular densities, Breast Density category B. No suspicious masses or suspicious microcalcifications are seen. No skin thickening or abnormal axillary lymph nodes are seen. There has been no significant change from prior exams. IMPRESSION: BI-RADS Category 1, Negative mammogram Yearly screening mammography is recommended. Breast Density - Category B, scattered fibroglandular densities. A negative radiographic report should not delay biopsy if a dominant or clinically suspicious mass is present. Up to ten percent of cancers are not identified on mammography. A negative report may reinforce clinical impression. Adenosis and dense breasts may obscure an underlying neoplasm. False positive reports average 6 to 10%. Patient will receive a letter notifying them of these results.
== END ==
PROVIDERS: PCP Registered Nurse; Visit Provider Nurse Practitioner Family
DX: Z12.31 Encounter for screening mammogram for malignant neoplasm of breast (principal)
CPT/HCPCS: 77063; 77067

== ENCOUNTER → 2023-11-03 09:00 | Outpatient (BNVA) | payer MEDICARE, SELFPAY | PROVIDERS: PCP Nurse Practitioner Family; Referring Provider Registered Nurse; Visit Provider Physical Therapy Assistant | DX: Z12.11 Encounter for screening for malignant neoplasm of colon (principal); Z86.010 Personal history of colon polyps ==

== ENCOUNTER 2023-11-21 08:26 | Day surgery (SDC) | payer MEDICARE, SELFPAY ==
--- NOTE | 2023-11-20 19:33 | W.PM.DSUDISC ---
Date of service: 11/21/23 Time of Service: 09:56 Discharge Plan Disposition Patient Disposition: Home Condition: Good Discharge Details Reason For Visit: screening colonoscopy Attending Provider: Casey Elaine Primary Care Provider: Rosa Fletcher Home Meds and New Rx's Prescriptions: Continued cyclosporine [Restasis] 0.05 % dropperette 1 drp OP Q12H Trelejesus Ellipta 100-62.5-25 mcg blister with device 1 inh inhalation DAILY albuterol sulfate [ProAir HFA] 90 mcg/actuation Hfa Aerosol Inhaler 2 puff INHALATION QID PRN atorvastatin 20 mg tablet 20 mg PO DAILY Patient Comments: TAKE 1 TABLET BY MOUTH EVERY DAY levothyroxine 88 mcg tablet 88 mcg PO DAILY Discontinued bisacodyl [Dulcolax (bisacodyl)] 5 mg tablet,delayed release (DR/EC) 5 mg PO ONCE Qty: 4 0RF polyethylene glycol 3350 17 gram/dose powder 17 g PO DAILY Qty: 238 0RF Discharge Instructions Instructions: Diverticulosis (GEN), Colorectal Polyps (GEN), Diverticulosis Diet (GEN) Additional Instructions: Yodit, we are able to complete your colonoscopy today without any issues. Your prep was fine, we could see everything quite nicely. In total, I found and removed 7 polyps today. Hopefully, these will be hyperplastic polyps, like your last colonoscopy. As you previously experience, these will be sent off for testing to determine whether or not that is the case. Incidentally, you also have a little bit of diverticulosis. Diverticula are little weak spots in the muscular part of the colon wall. I have attached some general information here about diverticulosis as well as colon and rectal polyps. If you have any questions in the meantime, please do not hesitate to ask at any point. 1. If tolerated, consume a soft, low fiber diet for 1-2 days. 2[address] Do not drive, drink alcohol, operate machinery, make critical decisions, or do activities that require coordination or balance for 24 hours. 3. Because air was put into your colon during the procedure, expelling air from your rectum (passing gas or farting) is normal. 4. You may not have a bowel movement for 1-3 days because of the colonoscopy prep. This is normal. 5. Go directly to the emergency room if you notice any of the following: Develop chills (warm to touch), or if you have a thermometer and your temperature is above 101 Difficulty breathing or difficultly swallowing Persistent vomiting Severe abdominal pain, other than gas cramps Severe chest pain Black, tarry stools Any bleeding ? exceeding one tablespoon 6. Call your physician if the site where your intravenous was started becomes red, swollen, painful, and warm to touch. 7. Your physician has reviewed your pre-procedure medications. Please continue to take those medications as previously ordered. You will be given specific information/education regarding any changes to your medications before leaving. Activity:: Activity as Tolerated Diet:: As Tolerated Discharge Orders Discharge Orders: Discharge Order (Routine); Ordered 11/20/23 Ordered By: Casey Elaine DS: Diagnosis Discharge Diagnosis (1) Encounter for screening colonoscopy: Status: Acute Asessment and Plan: Follow-up on polypectomy results
--- NOTE | 2023-11-20 19:37 | W.COLOREPORT ---
Date of service: 11/21/23 Time of Service: 09:58 Colonoscopy Report Date of procedure: 11/21/23 Pre-op diagnosis general: screening colonoscopy Post-op diagnosis procedure note: other (Colorectal polyps, diverticulosis) Procedure: colonoscopy with polypectomy Surgeon: Casey Elaine Anesthesia Type: General:No Airway Estimated blood loss (mL): 5 Pathology: other (Rectal polyps x 5, 0.25 cm flat polyps at 30 cm) Complications: None Disposition: same day Indications: Yodit is a 68 year old woman with a history of greater than 10 polyps who needs her next [facility] Prep: Miralax/Dulcolax Procedure Start Time: :19 Procedure End Time: 19:43 Retraction Time: 13 Findings: Sigmoid diverticulosis, colon and rectal polyps Procedure Description: After the induction of monitored anesthetic care, and with the patient in left lateral decubitus position, I began by performing an external anorectal exam.? Perineum and skin were normal, as was the anal verge.? There was no evidence of external hemorrhoids.? Next, I performed a digital rectal exam.? I did not appreciate any abnormal findings.? Next, I advanced a colonoscope into the rectal vault.? I performed retroflexion.? This appeared normal.? Using insufflation, I then advanced the colonoscope beyond the rectal folds and into the sigmoid colon before advancing towards the cecum.? There was some sigmoid diverticulosis.? The scope was noted to be in the cecum by identification of the ileocecal valve and appendiceal orifice.? I then began withdrawing the colonoscope using repeated irrigation as necessary for full evaluation of the colonic mucosa. Around 30 cm from the anal verge were 2 polyps. They were both flat. Each was less than 0.25 cm. I removed both of these polyps with cold forceps with minimal bleeding. ?Once the scope was withdrawn to the level of the rectum, great care was taken to examine portions of the rectal folds.? There were several polyps in the distal rectum all less than 0.25 cm. Narrowband imaging was used to assist with analysis. I removed 5 polyps all using cold forceps. There were no complications. Finally, the scope was withdrawn and the patient was brought to the same-day surgery recovery unit as the anesthetic wore off. ?The findings and instructions were shared with the patient prior to discharge. [place] Bowel Prep [place] Bowel Prep Right Colon: 3 Left Colon: 3 Transverse Colon: 3 Total Score: 9
[2023-11-21 08:26] VITALS: BP 157/96; PULSE 80; RESP 20; TEMP 36; O2SAT 95
--- NOTE | 2023-11-21 08:48 | ANES.PREOP_ITS ---
General Info Date of Service Date Performed: 11/21/23 Height: 5 ft 7 in Weight: 89.3 kg Body Mass Index (BMI): 30.8 Surgical Procedure: Operation Date: 11/21/23 09:50 Proposed Procedure Side Surgeon heena Elaine MD Meds Allergies and Home Medications Allergies Allergy/AdvReac Type Severity Reaction Status Date / Time No Known Allergies Allergy Verified 11/21/23 08:38 Home Medication Medication Instructions Recorded cyclosporine 0.05 % eye drops in a 1 drp ophthalmic (eye) Q12H 04/26/18 dropperette (Restasis) albuterol sulfate 90 mcg/actuation 2 puff inhalation QID PRN 05/17/18 aerosol inhaler (ProAir HFA) atorvastatin 20 mg tablet 20 mg PO DAILY 09/04/21 levothyroxine 88 mcg tablet 88 mcg PO DAILY 09/07/21 fluticasone fur. 100 mcg-umeclid 1 inh inhalation DAILY 09/30/23 62.5 mcg-vilant 25 mcg inhalat.powder (Trelegy Ellipta) Current Visit Medications: Current Medications Generic Name Dose Route Start Last Admin Trade Name Freq PRN Reason Stop Dose Admin Hyoscyamine Sulfate 0.125 mg 11/20/23 19:39 Hyoscyamine 0.125 Mg Sl/Oral/Chew SL 12/20/23 19:38 DIRECTED PRN Ringer's Solution 1,000 mls @ 80 mls/hr 11/21/23 06:00 IV 11/21/23 23:59 INFUSION [facility] IV Miscellaneous Supplies 1 each 11/21/23 06:00 Iv Access IV 11/21/23 23:59 DIRECTED [facility] Ondansetron HCl 4 mg 11/20/23 19:39 Ondansetron 4 Mg/2 Ml Vial IVP 12/20/23 19:38 Q4H PRN PRN Nausea / Vomiting Sodium Chloride 0 ml 11/21/23 06:00 Normal Saline Flush 10 Ml Syr IV 11/21/23 23:59 PRN PRN Sodium Chloride 0 ml 11/21/23 06:00 Normal Saline 10 Ml Vial IJ 11/21/23 23:59 DIRECTED PRN Sterile Water 0 ml 11/21/23 06:00 Water,Injection,Sterile 10 Ml Vial IJ 11/21/23 23:59 DIRECTED PRN PFSH Active Problems Active Problems: Problem Status Onset Code Encounter for screening colonoscopy Z12.11 Nuclear sclerotic cataract of right eye H25.11 Hypothyroidism E03.9 Irregular heart beat I49.9 Smoker F17.200 H/O colonoscopy Z98.890 COPD (chronic obstructive pulmonary disease) J44.9 Soft tissue mass ~05/2018 M79.9 Pre-operative examination Z01.818 S/P colonoscopy ~09/12/18 Z98.890 Colorectal polyps ~09/12/18 K63.5 Nuclear sclerotic cataract of left eye H25.12 Medical History Medical History Daytime somnolence Snoring Surgical History Surgical History Hx of cataract surgery History of hysterectomy Tobacco Smoking/Tobacco Use Status: Former Tobacco Use Alcohol Alcohol Intake: current Alcohol intake frequency: 3 or more drinks per day Alcohol type: beer Substance Use Substance use: Occasionally Substance use type: marijuana Vital Signs and Lab Results Vital Signs Most Recent Vital Signs in EMR: Most Recent Vital Signs Temp Pulse Resp BP Pulse Ox 36 C L 80 20 157/96 H 95 11/21/23 08:26 11/21/23 08:26 11/21/23 08:26 11/21/23 08:26 11/21/23 08:26 Lab Results Blood Type / Crossmatch: No Data to Display Complete Blood Count: No Data to Display Complete Metabolic Panel: No Data to Display Liver Function Panel: No Data to Display Coagulation Panel: No Data to Display Cardiac Panel: No Data to Display Arterial Blood Gas: No Data to Display Venous Blood Gas: No Data to Display Pancreas Panel: No Data to Display Thyroid Panel: No Data to Display Infectious Disease: No Data to Display Blood Cultures: No Data to Display Toxicology Panel: No Data to Display Anesthesia Assessment and Plan Anesthesia History Personal History: No History of Anesthesia Complications Family History: No Family History of Anesthesia Complications Exercise Tolerance Exercise Tolerance: Metabolic Equivalents>4 Pertinent Negatives Pertinent Negatives: No Symptoms of GERD, No Major Cardiovascular Symptoms or Complaints, No Major Pulmonary Symptoms or Complaints and No History of CVA/TIA Cardiac & Pulmonary Exam Cardiac Exam: Normal S1/S2 Heart Sounds Pulmonary Exam: Clear Bilateral Breath Sounds Implantable Cardiac Device Does patient have a Pacemaker or an ICD?: No Airway Exam Known Difficult Airway: No Mallampati Class: 3 Mouth Opening: Normal (> 3cm) Thyromental Distance: Greater than 3 cm Neck Range of Motion: Full ROM Neck Circumference: Normal Teeth Condition: Normal Dentition ASA Classification ASA Score: ASA 2 Emergency Case?: No NPO Status NPO Status: NPO Clears >2 hours, Solids >8 hours Anesthesia Plan Resuscitation Status: Full Code Anesthesia Technique: General Anesthesia Airway Planned: Natural Airway Monitors Used: Standard Monitors Preoperative Comments:: Rare inhaler use. Hx of polyps, last colonoscopy 2019.
[2023-11-21 08:55] VITALS: BMI 30.8
[2023-11-21] MEDS: Lactated Ringers 1,000 ML 80 ML IV (08:55)
--- NOTE | 2023-11-21 09:21 | BOWEL_PTH ---
PATIENT: Yodit Brandt LOC: [facility] U#:[id number] AGE/SX: 68/F ROOM: RE11/21/[address]: Casey Elaine MD : [id number] BED: DIS: 11/21/2023 SPEC #: [id number] RECD: 11/21/23 12:54 STATUS: LINDA REQ #: [id number] ALAN: 11/21/23 09:[address]: Casey Elaine DEPT: Surgical Specimen RECD BY: Britni Little ENTERED: 11/21/23 12:55 SP TYPE: Bowel OTHR DR: Rosa Fletcher Tissues: 1 - BIOPSY BOWEL 2 - BIOPSY BOWEL Procedures: GROSS AND MICRO LEVEL 4 Comments: [id number]
[2023-11-21 09:48] VITALS: BP 105/74; PULSE 78; RESP 20; TEMP 36.4; O2SAT 93
[2023-11-21 10:15] VITALS: BP 122/80; PULSE 62; RESP 20; TEMP 36.2; O2SAT 95
--- NOTE | 2023-11-21 10:42 | W.ANESPOSTOP ---
Postoperative Evaluation Date, Time and Location Date Performed: 11/21/23 Time Performed: 10:42 Patient Location: Day Surgery Unit Vital Signs Most Recent Imported Vital Signs: Most Recent Vital Signs Temp Pulse Resp BP Pulse Ox 36.4 C L 78 20 105/74 93 11/21/23 09:48 11/21/23 09:48 11/21/23 09:48 11/21/23 09:48 11/21/23 09:48 Pain Score Most Recent Pain Score: Most Recent Pain Score Pain Level 0 11/21/23 09:48 Assessment Mental Status: Awake (Alert & Oriented to Patient Baseline) Airway and Respiratory Function: Patent airway with normal (patient baseline) respiratory exam Cardiovascular Function: Hemodynamically Stable Hydration Status: Adequately Hydrated Nausea & Vomiting: No Nausea or Vomiting Pain: Pt. Denies Any Pain Peripheral Nerve Block: Patient did not receive a nerve block
== END 2023-11-21 10:46 | disposition home or self-care (01) ==
LOC: SUR 08:26
PROVIDERS: PCP Nurse Practitioner Family; Visit Provider Surgery
PROC: 0DJD8ZZ Inspection of Lower Intestinal Tract, Via Natural or Artificial Opening Endoscopic (ICD-10-PCS; CPT 45378; principal; 2023-11-21 09:45)
DX: Z12.11 Encounter for screening for malignant neoplasm of colon (principal); E03.9 Hypothyroidism, unspecified; F17.200 Nicotine dependence, unspecified, uncomplicated; K63.5 Polyp of colon; K57.30 Diverticulosis of large intestine without perforation or abscess without bleeding; K62.1 Rectal polyp
CPT/HCPCS: 45380; 88305; J2001; J2704

== ENCOUNTER 2024-10-23 16:50 | Outpatient (REF) | payer MEDICARE, SELFPAY ==
[2024-10-23 22:00] LABS: HCT 44.8 % (36.0-46.0); HGB 14.9 g/dL (11.2-15.7); MCH 30.7 pg (27.0-33.0); MCHC 33.3 % (32.0-36.0); MCV 92 fL (80-95); MPV 10.7 fL (8.0-11.0); Platelet Count 226 10^3/uL (130-400); RBC 4.86 10^6/uL (3.93-5.22); RDW 14.7 % (11.7-14.6); RDW-SD 50.2 fL; WBC 10.12 10^3/uL (4.4-10.8)
[2024-10-23 22:50] LABS: ALT 58 U/L (14-59); AST 46 U/L (15-37); Albumin 3.9 g/dL (3.4-5.0); Alkaline Phosphatase 93 U/L (46-116); Anion Gap 8.8 mmol/L (3-11); BUN 13 mg/dL (7-18); Bilirubin, Total 0.5 mg/dL (0.2-1.0); CO2 30.2 mmol/L (21.0-32.0); CREATININE 0.7 mg/dL (0.55-1.02); Calcium 10.5 mg/dL (8.5-10.1); Calculated LDL 65 mg/dL (<100); Chloride 108 mmol/L (98-107); Cholesterol 165 mg/dL (<200); Estimated GFR 92.98 (mL/min/1.73m2); Glucose 90 mg/dL (74-106); HDL Cholesterol 74 mg/dL (>or=50); Potassium 3.9 mmol/L (3.5-5.1); Sodium 147 mmol/L (136-145); TSH 4.44 uIU/mL (0.36-3.74); Total Protein 7.6 g/dL (6.4-8.2); Triglyceride 130 mg/dL (<150); Vitamin B12 342 pg/mL (193-986)
[2024-10-23 22:51] LABS: Folate > 20.0 ng/mL (8.6-20.0)
[2024-10-23 23:01] LABS: Hemoglobin A1C 6.3 % (<5.7)
== END 2024-10-23 16:51 | disposition home or self-care (01) ==
LOC: NCHCN 16:50
PROVIDERS: PCP Nurse Practitioner Family; Visit Provider Nurse Practitioner Family
DX: E78.9 Disorder of lipoprotein metabolism, unspecified (principal); R73.03 Prediabetes
CPT/HCPCS: 80053; 80061; 85027; 82607; 82746; 83036; 83735; 84443

== ENCOUNTER 2025-02-18 16:35 | Outpatient (REF) | payer MEDICARE, SELFPAY ==
[2025-02-18 16:24] LABS: ALT 65 U/L (14-59); AST 83 U/L (15-37); Albumin 3.7 g/dL (3.4-5.0); Alkaline Phosphatase 93 U/L (46-116); Anion Gap 6.2 mmol/L (3-11); BUN 11 mg/dL (7-18); Bilirubin, Total 0.6 mg/dL (0.2-1.0); CO2 31.8 mmol/L (21.0-32.0); Calcium 9.2 mg/dL (8.5-10.1); Chloride 104 mmol/L (98-107); Estimated GFR 68.77 (mL/min/1.73m2); Glucose 191 mg/dL (74-106); Potassium 4.0 mmol/L (3.5-5.1); Sodium 142 mmol/L (136-145); Total Protein 7.5 g/dL (6.4-8.2)
== END 2025-02-18 16:36 | disposition home or self-care (01) ==
LOC: NCHCN 16:35
PROVIDERS: PCP Nurse Practitioner Family; Visit Provider Nurse Practitioner Family
DX: I10 Essential (primary) hypertension (principal)
CPT/HCPCS: 80053

== ENCOUNTER 2025-04-04 04:17 | Outpatient (CLI) | payer MEDICARE, SELFPAY ==
--- NOTE | 2025-04-04 | DI.US_ITS ---
Exam(s) US ABDOMEN LIMITED EXAM: US ABDOMEN LIMITED CLINICAL HISTORY: ELEVATED LIVER ENZYMES R74.8 ABNL SERUM ENZYMES TECHNIQUE: Ultrasound abdomen performed using standard protocol. COMPARISON: There are no priors for comparison. FINDINGS: PANCREAS: Normal where visualized. LIVER: There is diffuse increased echogenicity of the liver consistent with fatty infiltration. Hepatopetal flow in the Portal Vein. The liver measures in 15.6 cm length. No evidence of a hepatic mass. GALLBLADDER: No evidence of cholelithiasis. No evidence of wall thickening. No pericholecystic fluid identified. There is a tiny echogenic nodule along the wall of the gallbladder likely reflecting a small polyp. BILIARY SYSTEM: Common bile duct measures < 7 mm. No intrahepatic biliary ductal dilation. PEÑA'S SIGN: Negative. RIGHT KIDNEY: Kidney is normal in size. No evidence of renal calculi. No evidence of hydronephrosis. No renal mass or cyst identified. ASCITES: None seen. IMPRESSION: Hepatic steatosis. DATA REPOSITORY:
== END 2025-04-04 04:37 ==
PROVIDERS: PCP Nurse Practitioner Family; Visit Provider Nurse Practitioner Family
DX: K76.0 Fatty (change of) liver, not elsewhere classified (principal)
CPT/HCPCS: 76705

== ENCOUNTER 2025-04-08 15:41 | Outpatient (REF) | payer MEDICARE, SELFPAY ==
[2025-04-08 15:22] LABS: Hemoglobin A1C 6.1 % (<5.7)
[2025-04-08 15:33] LABS: ALT 57 U/L (14-59); AST 48 U/L (15-37); Albumin 3.8 g/dL (3.4-5.0); Alkaline Phosphatase 97 U/L (46-116); Anion Gap 8.2 mmol/L (3-11); BUN 11 mg/dL (7-18); Bilirubin, Total 0.6 mg/dL (0.2-1.0); CO2 28.8 mmol/L (21.0-32.0); Calcium 10.0 mg/dL (8.5-10.1); Chloride 106 mmol/L (98-107); Estimated GFR 79.22 (mL/min/1.73m2); Glucose 134 mg/dL (74-106); Potassium 4.0 mmol/L (3.5-5.1); Sodium 143 mmol/L (136-145); TSH 3.43 uIU/mL (0.36-3.74); Total Protein 7.3 g/dL (6.4-8.2)
[2025-04-09 15:35] LABS: Vitamin D 25 Total 51 ng/mL (30-100)
== END 2025-04-08 15:42 | disposition home or self-care (01) ==
LOC: NCHCN 15:41
PROVIDERS: PCP Nurse Practitioner Family; Visit Provider Nurse Practitioner Family
DX: R73.03 Prediabetes (principal); E83.52 Hypercalcemia; E03.9 Hypothyroidism, unspecified; I10 Essential (primary) hypertension
CPT/HCPCS: 80053; 82306; 83036; 83970; 84443